=== PATIENT | male | born 1930 | race Caucasian/White ===

== ENCOUNTER 2022-04-12 15:07 | Emergency (ER) | payer MEDICARE, OTHER ==
[~2022-04-12] VITALS: Ht 188 cm; Wt 79.5 kg
[2022-04-12 15:26] VITALS: TEMP 98.6
[2022-04-12 18:13] VITALS: BP 168/78; PULSE 60
== END 2022-04-12 18:13 | disposition home or self-care (01) ==
LOC: COL.ER 15:07
DX: S39.012A Strain of muscle, fascia and tendon of lower back, initial encounter (principal); S09.90XA Unspecified injury of head, initial encounter; I48.91 Unspecified atrial fibrillation; Z79.01 Long term (current) use of anticoagulants; Z91.040 Latex allergy status; Z88.6 Allergy status to analgesic agent; W01.198A Fall on same level from slipping, tripping and stumbling with subsequent striking against other object, initial encounter

== ENCOUNTER 2022-05-15 17:41 | Inpatient (IN) | payer MEDICARE, OTHER ==
[~2022-05-15] VITALS: Ht 188 cm; Wt 80.7 kg
[~2022-05-15 17:41] MED LIST: LEVAQUIN 5500 MG/TA1 PO
[2022-05-15 18:53] LABS: MEAN CELL VOLUME 95 fl (80.0-100.0); MEAN CORPUSCULAR HGB CONC 34 g/dl (33.0-37.0); MEAN PLATELET VOLUME 9.8 fl (7.4-10.4); PLATELET COUNT 175 K/mm3 (130-400); RED BLOOD COUNT 2.77 M/mm3 (4.20-5.60); REDCELL DISTRIBUTION WIDTH-CV 13.5 % (11.5-14.5)
[2022-05-15 18:57] LABS: HEMATOCRIT 26.3 % (42.0-52.0); HEMOGLOBIN 8.8 g/dl (13.5-18.0); MEAN CORPUSCULAR HEMOGLOBIN 32 pg (27-31)
[2022-05-15 18:58] LABS: INR 3.9 (0.8-3.0)
[2022-05-15 19:00] LABS: PROTHROMBIN TIME 45.3 SECONDS (9.7-12.8)
[2022-05-15 19:17] LABS: ALBUMIN 2.9 gm/dL (3.4-4.8); CALCIUM 9.5 mg/dL (8.4-10.2); CREATININE, serum 1.26 mg/dL (0.72-1.25); POTASSIUM 3.9 mmol/L (3.5-4.5); TOTAL PROTEIN 6.7 gm/dL (6.2-8.1)
[2022-05-15 19:33] LABS: BAND 35 % (0-10); LYMPHOCYTE 1 % (20.0-51.0); NEUTROPHILS 64 % (42.0-75.2)
[2022-05-15 19:34] LABS: ANISOCYTOSIS 1+; HYPOCHROMIA 1+; PLATELET ESTIMATE NORMAL (NORMAL)
[2022-05-15] MEDS ORDERED: PROAIR HFA0.09 MG/AC IH (20:36)
[2022-05-15] MEDS ORDERED: LEVAQUIN 5500 MG/TA1 PO (20:36)
[2022-05-15] MEDS ORDERED: TRIAM OI 0.1 80 TOP (20:37)
[2022-05-15] MEDS ORDERED: COUMADIN 5MG5 MG/TAB PO (20:37)
[2022-05-15] MEDS ORDERED: DEMADEX 20MG20 M1 PO (20:38)
[2022-05-15] MEDS ORDERED: TOPROL XL 50MG50 MG PO (20:39)
[2022-05-15 21:08] VITALS: BP 135/66; PULSE 86; TEMP 98.1
[2022-05-16] VITALS (7 sets, daily range): BP systolic 125–157; BP diastolic 60–80; PULSE 76–93; TEMP 97.6–98.7
[2022-05-16 06:51] LABS: MEAN CELL VOLUME 95 fl (80.0-100.0); MEAN CORPUSCULAR HGB CONC 33 g/dl (33.0-37.0); MEAN PLATELET VOLUME 10.3 fl (7.4-10.4); PLATELET COUNT 152 K/mm3 (130-400); RED BLOOD COUNT 2.84 M/mm3 (4.20-5.60); REDCELL DISTRIBUTION WIDTH-CV 13.7 % (11.5-14.5)
[2022-05-16 06:58] LABS: HEMATOCRIT 27.1 % (42.0-52.0); INR 3.6 (0.8-3.0); MEAN CORPUSCULAR HEMOGLOBIN 32 pg (27-31); PROTHROMBIN TIME 42.2 SECONDS (9.7-12.8)
[2022-05-16 07:10] LABS: CALCIUM 8.9 mg/dL (8.4-10.2); CREATININE, serum 1.12 mg/dL (0.72-1.25); POTASSIUM 4.5 mmol/L (3.5-4.5)
[2022-05-16 07:24] LABS: BAND 29 % (0-10); LYMPHOCYTE 4 % (20.0-51.0); NEUTROPHILS 64 % (42.0-75.2)
[2022-05-16 07:25] LABS: HYPOCHROMIA 1+; PLATELET ESTIMATE NORMAL (NORMAL)
[2022-05-16 07:26] LABS: OVALOCYTES 1+
[2022-05-16 07:31] LABS: TROPONIN-I 0.519 ng/mL (0.00-0.033)
[2022-05-16 11:28] LABS: CHOLESTEROL RISK RATIO 5.4
[2022-05-17 03:55] VITALS: BP 133/75; PULSE 81; TEMP 97.9
[2022-05-17 08:10] VITALS: BP 141/97; PULSE 71; TEMP 97.9
[2022-05-17 10:31] LABS: MEAN CORPUSCULAR HGB CONC 32 g/dl (33.0-37.0); MEAN PLATELET VOLUME 10.2 fl (7.4-10.4); PLATELET COUNT 199 K/mm3 (130-400); RED BLOOD COUNT 2.99 M/mm3 (4.20-5.60); REDCELL DISTRIBUTION WIDTH-CV 13.4 % (11.5-14.5)
[2022-05-17 10:32] LABS: INR 3.1 (0.8-3.0); PROTHROMBIN TIME 35.7 SECONDS (9.7-12.8)
[2022-05-17 10:34] LABS: HEMATOCRIT 30.1 % (42.0-52.0); HEMOGLOBIN 9.6 g/dl (13.5-18.0); MEAN CELL VOLUME 101 fl (80.0-100.0); MEAN CORPUSCULAR HEMOGLOBIN 32 pg (27-31)
[2022-05-17 10:41] LABS: CALCIUM 9.5 mg/dL (8.4-10.2); CREATININE, serum 1.16 mg/dL (0.72-1.25); POTASSIUM 4.2 mmol/L (3.5-4.5)
[2022-05-17 11:18] LABS: BAND 2 % (0-10); LYMPHOCYTE 9 % (20.0-51.0); NEUTROPHILS 82 % (42.0-75.2)
[2022-05-17 11:22] LABS: HYPOCHROMIA 2+
[2022-05-17 11:23] LABS: PLATELET ESTIMATE NORMAL (NORMAL)
[2022-05-17 11:37] VITALS: BP 135/85; PULSE 87; TEMP 98
[2022-05-17 15:52] VITALS: BP 128/65; PULSE 73; TEMP 97.8
[2022-05-17 20:48] VITALS: BP 134/78; PULSE 80; TEMP 98.3
[2022-05-18 00:23] VITALS: BP 128/71; PULSE 68; TEMP 98.3
[2022-05-18 03:38] VITALS: BP 125/71; PULSE 65; TEMP 98
[2022-05-18 07:20] LABS: MEAN CORPUSCULAR HGB CONC 33 g/dl (33.0-37.0); MEAN PLATELET VOLUME 10.1 fl (7.4-10.4); PLATELET COUNT 186 K/mm3 (130-400); RED BLOOD COUNT 2.73 M/mm3 (4.20-5.60); REDCELL DISTRIBUTION WIDTH-CV 13.6 % (11.5-14.5)
[2022-05-18 07:21] LABS: HEMATOCRIT 26.3 % (42.0-52.0); HEMOGLOBIN 8.6 g/dl (13.5-18.0); MEAN CELL VOLUME 96 fl (80.0-100.0); MEAN CORPUSCULAR HEMOGLOBIN 32 pg (27-31)
[2022-05-18 07:30] LABS: PROTHROMBIN TIME 34.5 SECONDS (9.7-12.8)
[2022-05-18 07:32] LABS: CREATININE, serum 0.97 mg/dL (0.72-1.25); POTASSIUM 4.7 mmol/L (3.5-4.5)
[2022-05-18 07:49] VITALS: BP 134/67; PULSE 67; TEMP 98.1
[2022-05-18 08:56] LABS: BAND 13 % (0-10); LYMPHOCYTE 10 % (20.0-51.0); METAMYELOCYTE 3 % (0-0); MYELOCYTE 2 % (0-0); NEUTROPHILS 64 % (42.0-75.2); PLATELET ESTIMATE NORMAL (NORMAL)
[2022-05-18 09:04] LABS: OVALOCYTES 1+
[2022-05-18 09:05] LABS: HYPOCHROMIA 1+
[2022-05-18 11:20] VITALS: BP 126/57; PULSE 72; TEMP 97.8
[2022-05-18] MEDS ORDERED: PREDNISONE20 MG PO (14:27)
[2022-05-18] MEDS ORDERED: TESSALON P100 MG/CAP PO (14:27)
[2022-05-18] MEDS ORDERED: MUCUS RELIEF200 MG PO (14:27)
[2022-05-18] MEDS ORDERED: TOPROL XL 25MG25 MG PO (14:28)
[2022-05-18] MEDS ORDERED: ASPIRIN E.C. 8181 MG PO (14:28)
[2022-05-18] MEDS ORDERED: NITROSTAT0.4 MG/TAB SL (14:29)
[2022-05-18] MEDS ORDERED: DEMADEX10 MG PO (14:30)
[2022-05-18] MEDS ORDERED: COZAAR 25MG25 MG/TAB PO (14:30)
[2022-05-18] MEDS ORDERED: OMNICEF 300MG300 MG PO (14:31)
[2022-05-18 15:14] VITALS: BP 117/48; PULSE 74; TEMP 98.1
== END 2022-05-18 16:10 | disposition home health service (06) | DRG 193 ==
LOC: COL.ER 17:41 → MEDICAL 20:08
PROVIDERS: Emergency Medicine; Nurse Practitioner; Nurse Practitioner Family; Physician Assistant; ADMIT Student in an Organized Health Care Education/Training Program
DX: J18.9 Pneumonia, unspecified organism (principal); I21.4 Non-ST elevation (NSTEMI) myocardial infarction; I50.22 Chronic systolic (congestive) heart failure; E87.1 Hypo-osmolality and hyponatremia; N17.9 Acute kidney failure, unspecified; J45.901 Unspecified asthma with (acute) exacerbation; I48.21 Permanent atrial fibrillation; Z20.822 Contact with and (suspected) exposure to COVID-19; I95.9 Hypotension, unspecified; I25.10 Atherosclerotic heart disease of native coronary artery without angina pectoris; I27.20 Pulmonary hypertension, unspecified; D64.9 Anemia, unspecified; E83.52 Hypercalcemia; N18.9 Chronic kidney disease, unspecified; R73.9 Hyperglycemia, unspecified; Z66 Do not resuscitate; R13.10 Dysphagia, unspecified; Z88.0 Allergy status to penicillin; Z95.4 Presence of other heart-valve replacement; Z95.1 Presence of aortocoronary bypass graft; Z95.0 Presence of cardiac pacemaker; Z88.8 Allergy status to other drugs, medicaments and biological substances; Z88.6 Allergy status to analgesic agent; Z88.1 Allergy status to other antibiotic agents; Z91.040 Latex allergy status; Z79.01 Long term (current) use of anticoagulants
CPT/HCPCS: J0456; J0692; J0696; J2920; J2930; J7030; J7050; J7120; J7512